=== PATIENT | male | born 1935 | race Caucasian/White ===

== ENCOUNTER → 2017-05-29 | Outpatient (CLI) | payer MEDICARE | END | disposition home or self-care (01) | LOC: GMAM 12:46 | PROVIDERS: ATTEND Family Medicine | DX: Z12.5 Encounter for screening for malignant neoplasm of prostate (principal); M10.9 Gout, unspecified | CPT/HCPCS: 84550; G0103 ==

== ENCOUNTER → 2018-02-13 | Outpatient (CLI) | payer MEDICARE | LOC: GMAM 10:32 | PROVIDERS: ATTEND Family Medicine | DX: M10.9 Gout, unspecified (principal) ==

== ENCOUNTER → 2018-09-18 | Outpatient (CLI) | payer MEDICARE | LOC: GMAM 10:47 | PROVIDERS: ATTEND Family Medicine | DX: M10.9 Gout, unspecified (principal) ==

== ENCOUNTER → 2018-10-30 | Outpatient (CLI) | payer MEDICARE | LOC: GMAM 12:34 | PROVIDERS: ATTEND Family Medicine | DX: M10.9 Gout, unspecified (principal) ==

== ENCOUNTER → 2019-06-18 | Outpatient (CLI) | payer MEDICARE ==
--- NOTE | 2019-06-18 16:23 | CT ---
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 Multiplanar reconstructions were generated. Surface rendered 3D images of the vasculature were provided. And generated by the technologist on an independent workstation. FINDINGS: Study quality: Satisfactory Major vessels: The aortic arch and its branches are unremarkable. RIGHT Common carotid: Mild carotid bulb calcified atherosclerotic plaquing causing 20-30% carotid stenosis. No high-grade stenosis or dissection. Carotid artery bifurcation: Intact External carotid artery origin: Intact Internal carotid artery origin: Intact Distant internal carotid artery: Intact Right vertebral artery: Intact LEFT Common carotid: Mild carotid bulb calcified moderate plaquing without significant stenosis. No high-grade stenosis or dissection. External carotid artery origin: Intact Internal carotid artery origin: There is complete occlusion of the proximal left internal carotid artery (just distal to the carotid bulb) no significant retrograde flow into the left ICA within the supraclinoid region. There is normal caliber of the left anterior cerebral and left middle cerebral arteries due to blood flow from the anterior communicating artery (and the right ICA). Small left-sided posterior communicating artery is also present. Right vertebral artery: Intact. Other Findings Neck soft tissues: Subcentimeter right thyroid nodule (6 mm, no routine follow-up) Osseous structures: Moderate multilevel cervical spine degenerative changes. No aggressive osseous lesion. Lung apices: Centrilobular emphysematous changes within the upper lobes. IMPRESSION: 1. 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 2. Normal caliber of the left DUSTIN and left MCA arteries with blood flow from the anterior communicating artery and small left posterior communicating artery. 3. Patent vertebral arteries and posterior circulation. Electronically signed by: Sylvester Pitts DO 06/18/2019 4:21 PM CDT
== END ==
LOC: CT 09:32
PROVIDERS: ATTEND Family Medicine
DX: I65.23 Occlusion and stenosis of bilateral carotid arteries (principal); I10 Essential (primary) hypertension

== ENCOUNTER → 2019-10-21 | Outpatient (CLI) | payer MEDICARE | LOC: GMAM 10:26 | PROVIDERS: ATTEND Family Medicine | DX: M10.9 Gout, unspecified (principal); I10 Essential (primary) hypertension ==

== ENCOUNTER → 2020-05-14 | Outpatient (CLI) | payer MEDICARE | LOC: GMAM 10:13 | PROVIDERS: ATTEND Family Medicine | DX: M10.9 Gout, unspecified (principal); Z12.5 Encounter for screening for malignant neoplasm of prostate | CPT/HCPCS: 84550; G0103 ==